=== PATIENT | female | born 2000 | race Caucasian/White ===

== ENCOUNTER 2021-03-22 19:35 | Emergency (ER) | payer BC, SELFPAY ==
[2021-03-22 19:52] VITALS: BMI 21.9
[2021-03-22 20:02] VITALS: BP 130/74; PULSE 102; RESP 18; TEMP 36.8; O2SAT 100; BMI 21.9
--- NOTE | 2021-03-22 20:10 | HMH.EDUTC ---
[facility] [place] Disposition Clinical Impression: Viral syndrome Disposition: Home, Self-Care Condition on Discharge: Good Instructions: DI for COVID-19 (Suspected or Confirmed ), Coronavirus Disease 2019, Preventing the Spread of Coronavirus Discharge Instructions, DI for Fever (Symptom) -- Adult Additional Instructions: *Monitor Temp, Over the counter Motrin or Tylenol as directed/as needed Tylenol every 4 hours and Motrin every 6 hours (as long as your family doctor has told you that you can take it) for fever or pain. and straight to ER if unable to lower temp less than 101.0 after medication given *Warm salt water gargles may help to soothe the throat *Throat Lozenges *Warm fluids like tea with honey may help to soothe the throat *Sleep elevated *Humidifier/Vaporizer Follow up IMMEDIATELY for new or worsening symptoms or no Noticeable improvement over the next 48-72 hours. 911 for difficulty breathing or swallowing You were tested for today for COVID19 your test result should be back in the next 24-48 hours, you may call to the [facility] to see if your test results are back in the next 48 hours [phone] [facility] hours are 9am-9pm You was given a handout with instructions for Self Quarantine and Self isolation for while you wait on test results and what to do if they are positive If you are positive the Health Dept will be contacting you also Referrals: Provider,Referral, MD [Primary Care Provider] - As needed Forms: Work/School Release Time of Disposition: 20:30 Medical Decision Making - Michael Inquiry Pt receiving controlled substance: No Michael was queried for this patient: No Vital Signs: 03/22/21 20:02 Temperature 98.3 F Temperature Source Oral Pulse Rate [Left] 102 H Respiratory Rate 18 Blood Pressure [Right Arm] 130/74 Blood Pressure Mean [Right Arm] 92 02 Sat by Pulse Oximetry 100 Orders (Tests/Meds): ED MEDICATIONS Discontinued Medications Generic Name Dose Route Start Last Admin Trade Name Freq PRN Reason Stop Dose Admin Acetaminophen 650 mg 03/22/21 20:19 03/22/21 20:20 Acetaminophen 325mg Tab PO 03/22/21 20:20 650 mg ONCE ONE Administration ORDERS Category Date Time Status Full Resp Panel w/COVID ([facility]) Routine Lab 03/22/21 20:07 Received Medical Decision Narrative: Patient state that Tylenol helped with her headache [facility] HPI - General Stated complaint: Body aches,WILKERSON Time Seen by Provider: 03/22/21 20:10 Mode of Arrival: Ambulatory Source of Information: Patient Limitations: No Limitations Description of Symptoms (Recalled from Triage Doc. by RN): pt c/o body aches to the extent of not being able to lay in the bed, chills and a migraine. x2days HEENT Symptoms (Recalled from RN notes): Yes (migraine) Resp Symptoms (Recalled from RN notes): No Skin Symptoms (Recalled from RN notes): No MS Symptoms (Recalled from RN notes): No Functional Status (Recalled from RN notes): body aches, chills and fever hx - History of Present Illness Provider Complaint: Patient states that she has been feeling ill for a couple days State that she is having body aches, chills, headache nasal congestion and feels sore all over State that it feels like she may have the flu States that even her skin feels sore States that her two best friends is having the same symptoms and currently at other facilities getting tested for COVID also States that she took 800mg of Motrin about an hour ago - Related Data Allergies Allergy/AdvReac Type Severity Reaction Status Date / Time No Known Allergies Allergy Verified 03/22/21 20:18 - Worker's Comp Is this a Worker's Comp case?: No [facility] History - Hepatitis A Screen Drug use history?: No High risk sexual behaviors?: No History of sexually transmitted infection?: No Currently employed?: No Childcare worker?: No Do you have indoor plumbing?: Yes Do you have electricity?: Yes Attestation statement:: This patient has been screened for Hepatitis
[2021-03-22 20:15] LABS: Adenovirus,PCR Not Detected (NotDetected); Bordetella Pertussis Not Detected (NotDetected); Chlamydophila Pneumoniae, PCR Not Detected (NotDetected); Coronavirus 229E Not Detected (NotDetected); Coronavirus NL63 Not Detected (NotDetected); Coronavirus OC43 Not Detected (NotDetected); Coronovirus HKU1,PCR Not Detected (NotDetected); Human Metapneumovirus Not Detected (NotDetected); Influenza A, PCR Not Detected (NotDetected); Influenza AH1, 2009 Not Detected (NotDetected); Influenza AH1, PCR Not Detected (NotDetected); Influenza AH3,PCR Not Detected (NotDetected); Influenza B, PCR Not Detected (NotDetected); Mycoplasma Pneumoniae, PCR Not Detected (NotDetected); Parainfluenza 1, PCR Not Detected (NotDetected); Parainfluenza 2, PCR Not Detected (NotDetected); Parainfluenza 3, PCR Not Detected (NotDetected); Parainfluenza 4, PCR Not Detected (NotDetected); Respiratory Syncytial Virus Not Detected (NotDetected); Rhinovirus/Enterovirus Not Detected (NotDetected)
[2021-03-22 20:29] VITALS: BP 130/74; PULSE 102; RESP 18; TEMP 36.8
[2021-03-23 10:12] LABS: Coronavirus 19, PCR Detected (NotDetected)
--- NOTE | 2021-03-23 12:00 | PC.NURSE ---
pt given results.
== END 2021-03-22 20:32 | disposition home or self-care (01) ==
PROVIDERS: Emergency Provider Nurse Practitioner
DX: U07.1 COVID-19 (principal); B34.8 Other viral infections of unspecified site
CPT/HCPCS: 87581; 87633; 87798; 99202; G0463

== ENCOUNTER 2022-05-13 18:32 | Emergency (ER) | payer BC, SELFPAY ==
[2022-05-13 19:48] LABS: HCG Qualitative, Serum Negative (Negative)
--- NOTE | 2022-05-13 20:36 | EXP.UTC ---
Discharge Plan Referrals Follow up/Referrals: Provider,Referral, MD [Primary Care Provider] - See instructions Activity Restrictions/Add. Instructions Additional Instructions/Restrictions: Repeat home test if you do not start your period when it is due Return if needed straight to ER if any life threatening symptoms Clinical Impressions Clinical Impression: Encounter for test, result negative Instructions Patient Instructions: Nausea and Vomiting-Adult Discharge ED Provider: Elvira Mcduffie [facility] General Stated complaint: poss preganat, vomiting Mode of Arrival: Ambulatory Source of Information: Patient Time Seen by Provider: 05/13/22 20:36 HEENT Symptoms (Recalled from RN notes): No Resp Symptoms (Recalled from RN notes): Yes Skin Symptoms (Recalled from RN notes): No MS Symptoms (Recalled from RN notes): No Functional Status (Recalled from RN notes): . History of Present Illness Provider Complaint: Patient states that she took home pregancy test and it showed a faint line like it was positive and has had some N/V on and off States that she wanted to come in and get a test here Related Data Allergies Allergy/AdvReac Type Severity Reaction Status Date / Time No Known Allergies Allergy Verified 05/13/22 20:38 Worker's Comp Is this a Worker's Comp case?: No PFSH PFSH Social History Smoking Status: Unknown if ever smoked alcohol intake: never current occupational status: employed Travel in the last 8 weeks: None ROS Obtained: Yes All systems reviewed & no additional complaints except as documented and Yes Systems reviewed as appropriate & no additional complaints except as documented Constitutional Constitutional: Reports system reviewed and no additional complaints, except as documented and Reports as per HPI ENT Ears, Nose, Mouth, and Throat: Reports system reviewed and no additional complaints, except as documented and Reports as per HPI Cardiovascular Cardiovascular: Reports system reviewed and no additional complaints, except as documented and Reports as per HPI Respiratory Respiratory: Reports system reviewed and no additional complaints, except as documented and Reports as per HPI Gastrointestinal Gastrointestingal: Reports system reviewed and no additional complaints, except as documented, as per HPI, nausea and vomiting Physical Exam General General appearance: alert and in no apparent distress Head Head exam: atraumatic Eye Eye exam: Present normal appearance ENT ENT exam: Present normal exam, normal oropharynx, mucous membranes moist and TM's normal bilaterally Chest Chest inspection: Present normal inspection and symmetric chest wall rise Respiratory Respiratory exam: Present normal lung sounds bilaterally; Absent respiratory distress Cardiovascular Cardiovascular exam: Present regular rate, normal rhythm and normal heart sounds Abdominal Exam Abdominal exam: Present soft and normal bowel sounds; Absent distention or tenderness Neurological Exam Neurological exam: Present alert, oriented X3 and normal gait Psychiatric Psychiatric exam: Present normal affect and normal mood Skin Skin exam: Present warm, dry, intact and normal color Medical Decision Making Michael Inquiry Pt receiving controlled substance: No Michael was queried for this patient: No Lab Data Lab results reviewed: Yes I reviewed the patient's lab results. Lab Results 05/13/22 19:13: Serum HCG, Qual Negative Orders (Tests/Meds): ORDERS Category Date Time Status Beta HCG, Qual [HCG Qualitative, Serum] Stat Lab 05/13/22 19:13 Completed
[2022-05-13 20:37] VITALS: BP 142/92; PULSE 61; RESP 17; TEMP 36.8; O2SAT 99; BMI 20.3
[2022-05-13 20:42] LABS: UTC Pregnancy Test, Urine Negative (Negative)
[2022-05-13 20:49] VITALS: BP 149/92; PULSE 61; RESP 17; TEMP 36.8
== END 2022-05-13 20:50 | disposition home or self-care (01) ==
LOC: UTC 18:38
PROVIDERS: Emergency Provider Nurse Practitioner
DX: R11.2 Nausea with vomiting, unspecified (principal); Z32.02 Encounter for pregnancy test, result negative
CPT/HCPCS: 81025; 84703; 99212; G0463

== ENCOUNTER 2022-08-21 17:12 | Emergency (ER) | payer BC, SELFPAY ==
[2022-08-21 18:25] VITALS: BP 126/79; PULSE 114; RESP 16; TEMP 36.9; O2SAT 100; BMI 20.7
--- NOTE | 2022-08-21 18:38 | EXP.UTC ---
Discharge Plan Disposition Patient Disposition: Home, Self-Care Condition: Good Referrals Follow up/Referrals: Provider,Referral, [Primary Care Provider] - See instructions Activity Restrictions/Add. Instructions Additional Instructions/Restrictions: *Monitor Temp, Over the counter Motrin or Tylenol as directed/as needed Tylenol every 4 hours and Motrin every 6 hours (as long as your family doctor has told you that you can take it) for fever or pain. and straight to ER if unable to lower temp less than 101.0 after medication given *Warm salt water gargles may help to soothe the throat *Throat Lozenges? *Warm fluids like tea with honey may help to soothe the throat? *Sleep elevated *Humidifier/Vaporizer Your throat swab was sent for culture. Those results are typically sent to your primary care. Be sure to follow up in 2-3 days with your family doctor/primary care physician if no improvement so they can review those result and treat if necessary. If you don?t have a primary care doctor, I recommend you get one but in the mean time, you will have to return to a walk in clinic Follow up IMMEDIATELY for new or worsening symptoms or no Noticeable improvement over the next 48-72 hours. 911 for difficulty breathing or swallowing You were tested for today for COVID19 your test result should be back in the next 24-48 hours, you may check your Results on the [facility] [employer] [facility] Clinical Impressions Clinical Impression: Viral syndrome Stand Alone Forms Stand Alone Forms: Work/School Release Instructions Patient Instructions: DI for Viral Syndrome, DI for Fever (Symptom) -- Adult Discharge ED Provider: Elvira Mcduffie [facility] [place] HPI General Stated complaint: sore throat, cough, body aches, WILKERSON Time Seen by Provider: 08/21/22 18:38 History of Present Illness Provider Complaint: Patient states that she hasnt been feeling well for several days States that she has been having sore throat, cough, body aches, and headache States that today she was still feeling bad and wanted to get tested for COVID and Flu Related Data Allergies Allergy/AdvReac Type Severity Reaction Status Date / Time No Known Allergies Allergy Verified 05/13/22 20:[address] [facility] Disclaimer: The information contained in this section may have been updated after the patient was seen, as this information can be updated by other users. Medical History (Updated 08/21/22 @ 18:43 by Elvira Mcduffie APRN) Asthma Migraine Surgical History (Updated 08/21/22 @ 18:38 by Patience Scherer RN) History of tonsillectomy Social History (Updated 08/21/22 @ 18:38 by Patience Scherer RN) Smoking Status: Unknown if ever smoked alcohol intake: never current occupational status: employed Travel in the last 8 weeks: None ROS Obtained: Yes All systems reviewed & no additional complaints except as documented and Yes Systems reviewed as appropriate & no additional complaints except as documented Constitutional Constitutional: Reports system reviewed and no additional complaints, except as documented, Reports as per HPI, Reports body ache, Reports chills, Reports fever(s) and Reports headache(s) ENT Ears, Nose, Mouth, and Throat: Reports system reviewed and no additional complaints, except as documented, Reports as per HPI, Reports headache(s) and Reports sore throat Cardiovascular Cardiovascular: Reports system reviewed and no additional complaints, except as documented, Reports as per HPI and Denies dyspnea Respiratory Respiratory: Reports system reviewed and no additional complaints, except as documented, Reports as per HPI and Denies dyspnea Neurologic Neurologic: Reports system reviewed and no additional complaints, except as documented, Reports as per HPI and Reports headache(s) Physical Exam General General appearance: alert and in no apparent distress Expanded ENT Exam Throat exam: Present other (pharyngeal erythema noted with PND)
[2022-08-21 18:47] LABS: Coronavirus 19, PCR Not Detected (NotDetected); Influenza A, PCR Not Detected (NotDetected); Influenza B, PCR Not Detected (NotDetected)
[2022-08-21 18:57] LABS: UTC Strep Screen (Rapid) Negative (Negative)
[2022-08-21 19:06] VITALS: BP 126/79; PULSE 114; RESP 16; TEMP 36.9; O2SAT 100
== END 2022-08-21 19:13 | disposition home or self-care (01) ==
PROVIDERS: Emergency Provider Nurse Practitioner
DX: J02.9 Acute pharyngitis, unspecified (principal); R05.9 Cough, unspecified; R51.9 Headache, unspecified; B34.9 Viral infection, unspecified
CPT/HCPCS: 87880; 99212; C9803; G0463; U0003; U0005

== ENCOUNTER 2023-10-16 16:44 | Emergency (ER) | payer BC, SELFPAY ==
[2023-10-16 16:45] VITALS: BP 127/102; PULSE 123; RESP 16; TEMP 36.5; O2SAT 100; BMI 21.4
[2023-10-16 16:55] VITALS: BP 138/99; PULSE 97; O2SAT 99
[2023-10-16 17:10] LABS: Alanine Aminotransferase 14 U/L (12-78); Albumin Level 4.7 g/dl (3.5-5.0); Albumin/Globulin Ratio 1.6 (1.1-1.8); Alkaline Phosphatase 59 U/L (38-126); Anion Gap 10.8 mEq/L (5-15); Aspartate Amino Transferase 23 U/L (14-36); Bilirubin,Total 0.5 mg/dl (0.2-1.3); Blood Urea Nitrogen 10 mg/dl (7-17); Calcium 9.2 mg/dl (8.4-10.2); Carbon Dioxide 30 mmol/L (22.0-30.0); Chloride 102 mmol/L (98-107); Estimated Glomerular Filt Rate 103 ml/min (>60); GFR (African American) 124 ML/MIN (>60); Globulin 2.9 g/dL (1.3-3.2); Glucose 88 mg/dl (74-100); Potassium 3.8 mmoL/L (3.5-5.1); Sodium 139 mmol/L (136-145); Total Protein,Serum 7.6 g/dl (6.3-8.2)
[2023-10-16 17:11] LABS: Basophils % 0.3 % (0.1-2.0); Eosinophils # 0.1 K/mm3 (0.0-0.4); Eosinophils % 1.2 % (0.1-12.0); Hemoglobin 14.9 g/dL (12.2-16.2); Lymphocytes # 2.8 K/mm3 (0.7-4.5); Lymphocytes % 27.7 % (10-50); Mean Corpuscular HGB Conc 33.8 g/dL (31.8-35.4); Mean Corpuscular Hemoglobin 31.3 pg (27.0-31.2); Mean Corpuscular Volume 92.6 fl (81-99); Mean Platelet Volume 8.1 fl (7.4-10.4); Monocytes # 0.8 K/mm3 (0.1-1.0); Neutrophils # 6.2 K/mm3 (1.8-7.8); Neutrophils % 62.7 % (37.0-80.0); Platelet Count 246 K/mm3 (142-424); Red Blood Count 4.76 M/mm3 (4.20-5.40); Red Cell Distribution Width 12.6 % (11.5-17.5); White Blood Count 9.9 K/mm3 (4.8-10.8)
[2023-10-16 17:31] VITALS: BP 112/81; PULSE 94; O2SAT 100
--- NOTE | 2023-10-16 17:44 | PC.NURSE ---
rounded on pt no needs at this time call light at bs
--- NOTE | 2023-10-16 18:27 | ED_ITS ---
Discharge Plan Disposition Patient Disposition: Left Against Medical Advice Condition: Good Chief Complaint: Neuro Symptoms/Deficit Referrals Follow up/Referrals: Provider,MD Karina [Primary Care Provider] - See instructions Clinical Impressions Clinical Impression: Paresthesia Discharge ED Provider: Yohana Tidwell Adult [facility] General Chief complaint: Neuro Symptoms/Deficit Stated complaint: numbness and tingling in face Time Seen by Provider: 10/16/23 16:46 Mode of Arrival: Ambulatory Source of Information: Patient Limitations: No Limitations Description of Symptoms (Recalled from ER Triage Doc. by RN): patient ambulatory to ED with complaints of numbness/tingling in BLE/BUE with left side facial numbness. Patient to see neurologist in November for Chiari malformation. History of Present Illness HPI narrative: Patient is a 23-year-old female with past medical history of Chiari malformation presenting with left upper and left lower extremity numbness and tingling. Patient states that she was diagnosed in 2020 with Chiari malformation and since that time has had some intermittent numbness and tingling of her lower extremities and for the past 6 months has had numbness and tingling of her left face. 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 She states that she is so numb that she made a fist to show her numbness in her left hand and she cut herself with her own nail. Denies any history of stroke, blood clots, bleeding disorders, leg swelling. Related Data Allergies Allergy/AdvReac Type Severity Reaction Status Date / Time No Known Allergies Allergy Verified 05/13/22 20:38 [facility] Disclaimer: The information contained in this section may have been updated after the patient was seen, as this information can be updated by other users. Medical History (Updated 10/16/23 @ 18:40 by Yohana Tidwell MD) Asthma Migraine Surgical History (Updated 08/21/22 @ 18:38 by Patience Scherer RN) History of tonsillectomy Social History (Updated 08/21/22 @ 18:38 by Patience Scherer RN) Smoking Status: Current every day smoker alcohol intake: never current occupational status: employed Travel in the last 8 weeks: None ROS Obtained: Yes All systems reviewed & no additional complaints except as documented Physical Exam General General appearance: alert and in no apparent distress Head Head exam: atraumatic and normocephalic Eye Eye exam: Present PERRL and EOMI ENT ENT exam: Present mucous membranes moist Neck Neck exam: Present normal inspection Chest Chest inspection: Present normal inspection and symmetric chest wall rise Respiratory Respiratory exam: Present normal lung sounds bilaterally; Absent respiratory distress Cardiovascular Cardiovascular exam: Present regular rate and normal rhythm Abdominal Exam Abdominal exam: Present soft; Absent tenderness Neurological Exam Neurological exam: Present alert, oriented X3, CN II-XII intact and normal gait Expanded Neurological Exam Patient oriented to: Present person, place and time Cranial nerves: Normal: EOM function (II, III, IV, ), facial palsy (VII) and tongue deviation (XII) and Abnormal Left: facial sensation (V) (Abnormal sensation on the left that is chronic for patient over the past 6 months) Cerebellar function: normal gait Motor strength - LUE: 5/5 Motor strength - RUE: 5/5 Motor strength - LLE: 5/5 Motor strength - RLE: 5/5 Sensory exam upper extremity: Abnormal Left: light touch (Decree sensation in left upper and lower extremity and right lower extremity) and Abnormal Right: light touch (Decree sensation in left upper and lower extremity and right lower extremity) Psychiatric Psychiatric exam: Present normal affect and normal mood Skin Skin exam: Present warm and dry Medical Decision Making Medical Records Medical records reviewed: Yes I reviewed the patient's medical records. Michael Inquiry Pt receiving controlled substance: No Vital Signs: 10/16/23 16:45 10/16/23 16:55 10/16/23 17:31 Temperature 97.7 F Temperature Source Oral Pulse Rate 97 H 94 H Pulse Rate [Left] 123 H Respiratory Rate 16 Blood Pressure 138/99 H 112/81 Blood Pressure [Right Arm] 127/102 H Blood Pressure Mean [Right Arm] 110 Blood Pressure Source [Right Arm] Automatic Cuff Blood Pressure Position [Right Arm] Sitting 02 Sat by Pulse Oximetry 100 99 100 Oxygen Delivery Method Room Air Room Air Lab Data Lab results reviewed: Yes I reviewed the patient's lab results. Lab Results 10/16/23 16:50: WBC 9.9, RBC 4.76, Hgb 14.9, Hct 44.0, MCV 92.6, MCH 31.3 H, MCHC 33.8, RDW 12.6, Plt Count 246, MPV 8.1, Neut % (Auto) 62.7, Lymph % (Auto) 27.7, Eagle % (Auto) 8.0, Eos % (Auto) 1.2, Baso % (Auto) 0.3, Neut # (Auto) 6.2, Lymph # (Auto) 2.8, Eagle # (Auto) 0.8, Eos # (Auto) 0.1, Baso # (Auto) 0.0, Sodium 139, Potassium 3.8, Chloride 102, Carbon Dioxide 30, Anion Gap 10.8, BUN 10, Creatinine 0.70, Estimated GFR 103, Est GFR ( Amer) 124, Glucose 88, Calcium 9.2, Total Bilirubin 0.5, AST 23, ALT 14, Alkaline Phosphatase 59, Total Protein 7.6, Albumin 4.7, Globulin 2.9, Albumin/Globulin Ratio 1.6 10/16/23 16:50 10/16/23 16:50 Orders (Tests/Meds): ED MEDICATIONS Generic Name Dose Route Start Last Admin Trade Name Freq PRN Reason Stop Dose Admin Sodium Chloride 10 ml 10/16/23 16:54 Sodium Chloride 0.9% 10ml Flush Syringe IV 11/15/23 16:53 NEEDED PRN Maintain IV Site ORDERS Category Date Time Status CT angio head Stat Cat Scan 10/16/23 16:[address] angio neck Stat Cat Scan 10/16/23 16:[address] head/brain wo con Stat Cat Scan 10/16/23 16:54 Ordered Complete Blood Count Auto Diff Stat Lab 10/16/23 16:50 Completed Comprehensive Metabolic Panel Stat Lab 10/16/23 16:50 Completed Urinalysis and Microscopic Stat Lab 10/16/23 16:54 Ordered Urine , HCG Qual. Stat Lab 10/16/23 16:54 Ordered Medical Decision Narrative: Patient is a 23-year-old female with past medical history Chiari malformation 1 presenting with left upper and lower extremity decreased sensation. She states that this happened earlier this morning and occurred greater than 4 hours ago but less than 24 hours ago. She does have chronic neurologic deficits including over the past 6 months decree sensation in her left face and does have some transient numbness and tingling of her right lower extremity but the left upper and lower extremity sensation difference was new today. Denies any weakness. She is NIH 2 for the new numbness and tingling today, GCS 15 and no strength deficits. Given some chronic neurologic deficit including chronic numbness and tingling of the bilateral lower extremities, left upper extremity and left face feel patient is low risk for acute stroke especially considering age and low risk comorbidities but will obtain CTA and labs for further evaluation. On reevaluation patient had no change in her symptoms however she did have a CBC and CMP that were reassuring. Before she could be taken to scan patient was requesting discharge as she states she has school tomorrow. I discussed with patient that we cannot rule out a neurologic deficit without the CT scan and cannot rule out a stroke or neurologic abnormality. Patient states understanding but still would like to be discharged. Discussed that this would be AGAINST MEDICAL ADVICE considering we cannot rule out a stroke or acute neurologic abnormality. Patient understands these risks and understands that there could be worsening of her condition or but still request discharge. I discussed that she can return at anytime for any reason the patient is agreeable with this. Discharged AGAINST MEDICAL ADVICE in stable condition. Critical Care Critical Care Time Critical Care Time: No
[2023-10-16 18:31] VITALS: BP 112/81; PULSE 101; RESP 16; TEMP 36.6; O2SAT 100
== END 2023-10-16 18:32 | disposition left against medical advice (07) ==
PROVIDERS: Emergency Provider Emergency Medicine
DX: R20.0 Anesthesia of skin (principal); R20.2 Paresthesia of skin; Q07.00 Arnold-Chiari syndrome without spina bifida or hydrocephalus; J45.909 Unspecified asthma, uncomplicated; F17.200 Nicotine dependence, unspecified, uncomplicated
CPT/HCPCS: 80053; 85025; 99285